=== PATIENT | female | born 1960 | race Caucasian/White ===

== ENCOUNTER 2020-03-10 12:05 | Outpatient (REF) | payer BC, SELFPAY ==
--- NOTE | 2020-03-10 12:10 | MM_ITS ---
EXAMINATION: MM SCREENING DIGITAL BREAST TOMOSYNTHESIS, BILATERAL CLINICAL INFORMATION: Screening. Asymptomatic. The lifetime risk of breast cancer based on the Tyrer-Cuzick Model is 9.3 COMPARISON: Mammography: May 05, 2019 and dating back to December 07, 2011 TECHNIQUE: Digital breast tomosynthesis is performed in both the craniocaudal and mediolateral oblique views along with computer-aided detection (CAD). Synthesized 2D images are generated from the tomosynthesis. FINDINGS: There are scattered areas of fibroglandular density (ACR BI-RADS breast composition Category b). There are no significant masses, abnormal calcifications, or other abnormalities. MM/MM tomosynthesis screening BI IMPRESSION: There are no significant changes from prior study. ASSESSMENT: BI-RADS 1: Negative RECOMMENDATION: Routine annual mammography screening. This patient's information was entered into a reminder system with a target due date for their next mammogram.
== END 2020-03-10 12:06 | disposition home or self-care (01) ==
LOC: HO.MAMMO 12:05
PROVIDERS: PCP Internal Medicine; Visit Provider Internal Medicine
DX: Z12.31 Encounter for screening mammogram for malignant neoplasm of breast (principal)
CPT/HCPCS: 77063; 77067

== ENCOUNTER 2020-11-16 07:53 | Outpatient (REF) | payer OTHER, SELFPAY ==
[2020-11-16 11:10] LABS: MANUAL DIFF FLAG NO
[2020-11-16 11:17] LABS: Basophils Absolute Auto 0.1 X10*3/uL (0.0-0.2); Basophils Percent Auto 0.8 % (0-2); Eosinophils Absolute Auto 0.2 X10*3/uL (0.0-0.4); Eosinophils Percent Auto 2.8 % (0-4); Hematocrit 43.5 % (37-47); Imm Gran Abs Auto 0.06 X10*3/uL (0.00-0.03); Imm Gran Pct Auto 0.8 % (0.0-0.4); Lymphocytes Absolute Auto 1.6 X10*3/uL (1.2-4.9); Lymphocytes Percent Auto 19.9 % (20-40); Mean Corpuscular HGB Conc 32.2 g/dl (31.0-35.0); Mean Corpuscular Hemoglobin 30.8 pg (27.0-33.0); Mean Corpuscular Volume 95.6 fL (80-98); Mean Platelet Volume 10.2 fL (9.4-12.3); Monocytes Absolute Auto 0.5 X10*3/uL (0.1-1.2); Monocytes Percent Auto 5.8 % (2-11); Neutrophils Absolute Auto 5.6 X10*3/uL (2.0-8.3); Neutrophils Percent Auto 69.9 % (45-73); Platelet Count 296 X10*3/uL (160-400); Red Blood Count 4.55 X10*6/uL (4.20-5.50); Red Cell Distribution Width 12.5 % (11.0-16.0)
[2020-11-16 11:42] LABS: Alanine Aminotransferase 13 U/L (0-31); Anion Gap 14 (12-20); Aspartate Amino Transferase 18 U/L (5-31); Blood Urea Nitrogen 15 mg/dL (9-16); Calcium 9.6 mg/dL (8.4-10.2); Carbon Dioxide 27 mmol/L (22-29); Chloride 104 mmol/L (96-108); Cholesterol 229 mg/dL; Estimated Glomerular Filt Rate > 60; Glucose Fasting 86 mg/dL (60-99); HDL Cholesterol 70 mg/dL; LDL Cholesterol Calculated 135 mg/dl; Potassium 4.2 mmol/L (3.3-5.1); Sodium 141 mmol/L (135-145); Triglycerides 121 mg/dL
[2020-11-16 11:52] LABS: TSH reflex Free T4 1.87 uIU/mL (0.32-4.0); Vitamin D 25-OH Total 40.8 ng/mL (>30)
[2020-11-18 21:52] LABS: Lyme Abs Screen <0.90 index
== END 2020-11-16 07:54 | disposition home or self-care (01) ==
LOC: HO.HMGCLDS 07:53
PROVIDERS: PCP Internal Medicine; Visit Provider Internal Medicine
DX: Z00.00 Encounter for general adult medical examination without abnormal findings (principal); E78.5 Hyperlipidemia, unspecified; R53.83 Other fatigue; I10 Essential (primary) hypertension
CPT/HCPCS: 36415; 80048; 80061; 82306; 84443; 84450; 84460; 85025; 86617; 86618

== ENCOUNTER → 2020-12-22 15:35 | Outpatient (BNVA) | payer OTHER, SELFPAY | PROVIDERS: PCP Internal Medicine; Referring Provider Internal Medicine; Visit Provider Nurse Practitioner Family ==

== ENCOUNTER 2021-02-12 06:54 | Day surgery (SDC) | payer OTHER, SELFPAY ==
--- NOTE | 2021-02-11 09:00 | P.CONAN_ITS ---
Documented by User: Nicole Barrientos NP 02/11/21 09:01 HPI - Anesthesia Eval Consult details Narrative: 60yo F for Colonoscopy PMFSH Active Problems Active Problems: All Active Problems (Updated 11/11/20 @ 10:12 by Trang Mahmood MD) Allergic rhinitis (Acute) Dyslipidemia (Acute) Past Medical History Medical History Allergic rhinitis Dyslipidemia History of depression Family History Family History Brother Substance abuse Mental health disorder Sister Substance abuse Mental health disorder Father Substance abuse Mental health disorder Cardiovascular disease Mother Myxoma Surgical History Surgical History History of left breast biopsy History of tonsillectomy Hx of colonoscopy Social History Social History Patient Tobacco Use Status: Never used Tobacco Use of substances other than those prescribed or required for medical reasons: No Are you DNR?: No Advance Directives: No Advance Directives Information Provided: Yes Meds Allergies Allergy/AdvReac Type Severity Reaction Status Date / Time Penicillins [PENICILLINS] Allergy Unknown UNKNOWN Verified 02/08/21 13:46 Home Medications Medication Instructions Recorded Confirmed Last Taken Type fexofenadine 180 mg tablet 180 mg PO DAILY PRN 11/11/20 02/08/21 Unknown History (Amy Allergy) flaxseed oil 1,000 mg capsule 1,000 mg PO DAILY 11/11/20 02/08/21 Unknown History fluticasone propionate 50 1 spray INTRANASAL DAILY PRN 11/11/20 02/08/21 Unknown History mcg/actuation nasal spray,suspension (Flonase Allergy Relief) multivitamin (One-A-Day Essential) 1 tab PO QAM 11/11/20 02/08/21 Unknown History Exam Exam Date and Time: February 11, 2021 0900 Pertinent Lab Results Pertinent Lab Results: Laboratory Tests 11/16/20 11/16/20 08:02 08:02 WBC 8.0 Hgb 14.0 Hct 43.5 Plt Count 296 Sodium 141 Potassium 4.2 Chloride 104 Carbon Dioxide 27 BUN 15 Creatinine 0.82 Assessment and Plan Assessment Anesthesia Assessment: Chart Reviewed Documented by User: Sasha Sams MD 02/12/21 08:05 [facility] [place] Past Medical History Medical History Allergic rhinitis Dyslipidemia History of depression Family History Family History Brother Substance abuse Mental health disorder Sister Substance abuse Mental health disorder Father Substance abuse Mental health disorder Cardiovascular disease Mother Myxoma Family history of problems with anesthesia: No Surgical History Surgical History History of left breast biopsy History of tonsillectomy Hx of colonoscopy History of Problems with Anesthesia: No Social History Social History Patient Tobacco Use Status: Never used Tobacco Use of substances other than those prescribed or required for medical reasons: No Are you DNR?: No Advance Directives: No Advance Directives Information Provided: Yes Meds Allergies Allergy/AdvReac Type Severity Reaction Status Date / Time Penicillins [PENICILLINS] Allergy Unknown UNKNOWN Verified 02/08/21 13:46 Home Medications Medication Instructions Recorded Confirmed Last Taken Type fexofenadine 180 mg tablet 180 mg PO DAILY PRN 11/11/20 02/08/21 Unknown History (Amy Allergy) flaxseed oil 1,000 mg capsule 1,000 mg PO DAILY 11/11/20 02/08/21 Unknown History fluticasone propionate 50 1 spray INTRANASAL DAILY PRN 11/11/20 02/08/21 Unknown History mcg/actuation nasal spray,suspension (Flonase Allergy Relief) multivitamin (One-A-Day Essential) 1 tab PO QAM 11/11/20 02/08/21 Unknown Hi story Exam Airway Mallampati Class: II TM Dist: >3cm Neck ROM: Full Assessment and Plan Assessment Anesthesia Assessment: Anesthesia Plan Discussed Final Anesthetic Review Family History of Problems with Anesthesia: No History of Problems with Anesthesia: No NPO: Yes ASA Class: II Final Preanesthetic Review: No Changes in Pt Med Stat, Meds/Allgs Chart Reviewed, Consent Obtained/Reviewed and Anes Risks/Benef Reviewed Patient Risk: Low Procedure Risk: Low Anesthetic Plan Anesthetic Plan: MAC: Disposition: Standard PACU
[2021-02-12 07:08] VITALS: BP 128/67; PULSE 94; RESP 16; TEMP 36.8; O2SAT 100; BMI 27.1
--- NOTE | 2021-02-12 07:10 | MHC.SHP ---
Pre-Procedural Eval Section A Date of Service: 02/12/21 The patient is an INPATIENT: No The History & Physical has been completed within 30 days and I have reviewed it.: No Section B Chief Complaint: Screening Details of Present Illness: Colon cancer screening Relevant Family History (Specify if Yes): No Relevant Social History: None Present Medications: see Short Stay Collaborative assessment Medical History: Significant History (Allergic rhinitis Dyslipidemia History of depression) History of Previous Operations: Relevant previous surgery/procedure and date(s) (History of left breast biopsy History of tonsillectomy) Allergies: Allergies Allergy/AdvReac Type Severity Reaction Status Date / Time Penicillins [PENICILLINS] Allergy Unknown UNKNOWN Verified 02/08/21 13:46 Review of Systems Sugical H&P ROS: Negative: Constitution, Cardiovascular, Respiratory and Gastrointestinal Exam Surgical H&P Exam: Normal: Heart, Normal: Lungs, Normal: Extremities and Normal: Abdomen Plan Diagnosis/Plan: Unchanged I have reviewed the history and physical and performed a pertinent physical examination on my patient. No changes have occurred unless specified.
--- NOTE | 2021-02-12 07:42 | PC.NURSE ---
IV inserted on second attempt. Patient stated I feel lightheaded. BP 88/49, HR 58. HOB laid flat, wash cloth applied to forehead, fluids opened wide. Resolved within few minutes. BP 118/62, HR 78.
[2021-02-12] MEDS: Lactated Ringers 1,000 ML 100 ML IVCONT (07:45)
--- NOTE | 2021-02-12 08:10 | P.OP_ITS ---
Operative Note Operative Note Date of Service: 02/12/21 Narrative: Pre-op diagnosis:?Colon cancer screening Post-op diagnosis:?other (Diverticulosis, hemorrhoids) Procedure:? COLONOSCOPY TILL CECUM Consent: Indications for the procedure and potential complications of bleeding, perforation, reaction to medications and missed diagnosis were discussed with the patient and informed consent was obtained. Instrument: Olympus PCF H 190 L variable stiffness pediatric colonoscope Monitoring: Vital signs and clinical assessment, intermittent blood pressure monitoring, continuous EKG monitoring, Pulse oximetry and Carbon Dioxide monitoring were done throughout the procedure. Colon withdrawl time was 14 minutes. Procedure: The patient was placed in the left lateral decubitis position and pre-procedure medications were administered. After a digital rectal examination of the ano-rectum, the video colonoscope was inserted into the rectum and advanced through the colon to the cecum. The colonoscope was slowly withdrawn in a retrograde panoramic fashion and the colon mucosa was carefully examined including a retroflexed view of the rectum. Findings and interventions are described below. Procedure Difficulty: Without difficulty Findings: Terminal Ileum: Not evaluated Cecum:? Normal Ascending Colon:? Normal Transverse Colon:? Normal Descending Colon:? Normal Sigmoid Colon:? Moderate diverticulosis Rectum:? Normal Ano-rectum:? Small internal hemorrhoids Colon preparation:? Good? Impression and Post Procedure Diagnosis: Colonoscopy Findings: No polyps were detected. Moderate diverticulosis seen in the sigmoid colon Small hemorrhoids on retroflexed exam. Plan: Patient has an appointment on 02/26/21 in the [facility] with Nataly Sheppard FNP-BC Vik Ok to cancel since no biopsies were obtained. Repeat Colonoscopy in 10 years. Above findings were reviewed with the patient and? and diverticulosis handout was given in the discharge area Surgeon:?Shilo Marie MD Anesthesia:?MAC (Lena Alves CRNA) Was an Compression Molding Machine Tender used for this Procedure?:?Yes Compression Molding Machine Tender:?Emiliano Loco Estimated blood loss (mL):?0 Pathology:?none sent Condition:?stable Disposition:?PACU
[2021-02-12 08:45] VITALS: BP 88/48; PULSE 78; RESP 15; TEMP 36.3; O2SAT 95
[2021-02-12 09:00] VITALS: BP 106/61; PULSE 72; RESP 16; TEMP 36.3; O2SAT 98
== END 2021-02-12 09:17 | disposition home or self-care (01) ==
PROVIDERS: PCP Internal Medicine; Visit Provider Internal Medicine Gastroenterology
PROC: 0DJD8ZZ Inspection of Lower Intestinal Tract, Via Natural or Artificial Opening Endoscopic (ICD-10-PCS; CPT 45378; principal; 2021-02-12 08:20)
DX: Z12.11 Encounter for screening for malignant neoplasm of colon (principal); K57.30 Diverticulosis of large intestine without perforation or abscess without bleeding; K64.8 Other hemorrhoids; Z88.0 Allergy status to penicillin
CPT/HCPCS: 45378

== ENCOUNTER 2021-03-12 12:02 | Outpatient (REF) | payer OTHER, SELFPAY ==
--- NOTE | ~2021-03-12 | MM_ITS ---
EXAMINATION: MM SCREENING DIGITAL BREAST TOMOSYNTHESIS, BILATERAL CLINICAL INFORMATION: Screening. Asymptomatic. The lifetime risk of breast cancer based on the Tyrer-Cuzick Model is 9%. COMPARISON: Mammography: 03/10/2020, 03/05/2019, 03/02/2018 TECHNIQUE: Digital breast tomosynthesis is performed in both the craniocaudal and mediolateral oblique views along with computer-aided detection (CAD). Synthesized 2D images are generated from the tomosynthesis. FINDINGS: There are scattered areas of fibroglandular density (ACR BI-RADS breast composition Category b). There are no significant masses, abnormal calcifications, or other abnormalities. The axilla and skin contours are unremarkable. MM/MM tomosynthesis screening BI IMPRESSION: No mammographic evidence of malignancy. ASSESSMENT: BI-RADS 1: Negative RECOMMENDATION: Routine annual mammography screening. This patient's information was entered into a reminder system with a target due date for their next mammogram.
--- NOTE | ~2021-03-12 | MM_ITS ---
EXAMINATION: BONE DENSITOMETRY CLINICAL INDICATION: Asymptomatic menopausal state. COMPARISON: This is the patient's baseline examination. TECHNIQUE: Using a [employer] DXA System (software version: 13.1) manufactured by [employer], dual-energy x-ray absorptiometry was performed of the lumbar spine and left hip. The images are of good technical quality. Summary results are attached. FINDINGS: AP SPINE L1-L4: BMD 1.189 g/cm2, Z-score 1.1, T-score 0.1, normal. LEFT FEMUR, NECK: BMD 0.920 g/cm2, Z-score 0.3, T-score -0.8, normal. LEFT FEMUR, TOTAL: BMD 0.971 g/cm2, Z-score 0.5, T-score -0.3, normal. IDENTIFIED RISK FACTORS: Menopause, 3 or more drinks per day. HISTORY OF FRACTURE: None listed. MEDICATIONS: Vitamin D. MM/XR DEXA axial skeleton IMPRESSION: 1. DIAGNOSIS: Normal bone density based on the lowest T-score value of -0.8 in the femoral neck applying World Health Organization criteria. 2. 10-YEAR FRACTURE RISK PREDICTION, FRAX: Major osteoporotic fracture (clinical spine, forearm, hip or shoulder) 8.5%. Hip fracture 0.5%. 3. Treatment Recommendations: NOF guidelines recommend consideration for treatment in postmenopausal women and men age 50 and older presenting with the following: -A hip or vertebral (clinical or morphometric) fracture. -T-score less than or equal to -2.5 at the femoral neck or spine after appropriate evaluation to exclude secondary causes. -Low bone mass at the hip or spine and a 10-year fracture probability by FRAX of greater than or equal to 3% for hip fracture or greater than or equal to 20% for major osteoporotic fracture based on the [place] adapted WHO algorithm. 4. Other Recommendations: All treatment decisions require clinical judgment and consideration of individual patient factors, including patient preferences, comorbidities, previous drug use, risk factors not captured in the FRAX model (e.g. frailty, falls, vitamin D deficiency, increased bone turnover, interval significant decline in bone density) and possible under or overestimation of fracture risk by FRAX. FUTURE SCAN RECOMMENDATION: People with diagnosed cases of osteoporosis or at high risk for fracture should have regular bone mineral density tests. For patients eligible for Medicare, routine testing is allowed once every 2 years. The testing frequency can be increased to one year for patients who have rapidly progressing disease, those who are receiving or discontinuing medical therapy to restore bone mass, or have additional risk factors.
== END 2021-03-12 12:03 | disposition home or self-care (01) ==
LOC: HO.MAMMO 12:02
PROVIDERS: Visit Provider Internal Medicine
DX: Z13.820 Encounter for screening for osteoporosis (principal); Z78.0 Asymptomatic menopausal state; Z12.31 Encounter for screening mammogram for malignant neoplasm of breast
CPT/HCPCS: 77063; 77067; 77080

== ENCOUNTER 2021-11-17 09:53 | Outpatient (REF) | payer BC, SELFPAY ==
[2021-11-17 12:11] LABS: Alanine Aminotransferase 15 U/L (0-31); Anion Gap 11 (12-20); Aspartate Amino Transferase 19 U/L (5-31); Blood Urea Nitrogen 14 mg/dL (9-16); Calcium 9.7 mg/dL (8.4-10.2); Carbon Dioxide 28 mmol/L (22-29); Chloride 106 mmol/L (96-108); Cholesterol 237 mg/dL; Estimated Glomerular Filt Rate > 60; Glucose Fasting 93 mg/dL (60-99); HDL Cholesterol 70 mg/dL; LDL Cholesterol Calculated 149 mg/dl; Potassium 4.3 mmol/L (3.3-5.1); Sodium 141 mmol/L (135-145); Triglycerides 92 mg/dL
[2021-11-17 12:20] LABS: Vitamin D 25-OH Total 40.6 ng/mL (>30)
== END 2021-11-17 09:54 | disposition home or self-care (01) ==
LOC: HO.HMGCLDS 09:53
PROVIDERS: PCP Internal Medicine; Visit Provider Internal Medicine
DX: Z00.01 Encounter for general adult medical examination with abnormal findings (principal); E78.5 Hyperlipidemia, unspecified
CPT/HCPCS: 36415; 80048; 80061; 82306; 84450; 84460

== ENCOUNTER 2022-03-15 13:31 | Outpatient (REF) | payer BC, SELFPAY ==
--- NOTE | ~2022-03-15 | MM_ITS ---
EXAMINATION: MM SCREENING DIGITAL BREAST TOMOSYNTHESIS, BILATERAL CLINICAL INFORMATION: Screening. Asymptomatic. COMPARISON: Mammography: March 12, 2021 and studies dating back to January 28, 2016 TECHNIQUE: Digital breast tomosynthesis is performed in both the craniocaudal and mediolateral oblique views along with computer-aided detection (CAD). Synthesized 2D images are generated from the tomosynthesis. FINDINGS: There are scattered areas of fibroglandular density (ACR BI-RADS breast composition Category b). There are no significant masses, abnormal calcifications, or other abnormalities. MM/MM tomosynthesis screening BI IMPRESSION: No significant changes from prior exam. ASSESSMENT: BI-RADS 1: Negative RECOMMENDATION: Routine annual mammography screening. This patient's information was entered into a reminder system with a target due date for their next mammogram.
== END 2022-03-15 13:32 | disposition home or self-care (01) ==
LOC: HO.MAMMO 13:31
PROVIDERS: PCP Internal Medicine; Visit Provider Internal Medicine
DX: Z12.31 Encounter for screening mammogram for malignant neoplasm of breast (principal)
CPT/HCPCS: 77063; 77067

== ENCOUNTER 2023-02-08 12:17 | Outpatient (AMB) | payer BC, SELFPAY ==
[2023-02-08 13:01] VITALS: BP 110/60; PULSE 73; O2SAT 99; BMI 24.1
--- NOTE | 2023-02-08 13:01 | A.OFFPC_ITS ---
Vital Signs 02/08/23 13:01 Height 5 ft 5 in Weight 145 lb BMI 24.1 BP 110/60 Blood Pressure Location Rt brachial Position Sitting Pulse 73 Pulse Source Pulse Oximeter Pulse Oximetry (%) 99 Oxygen Delivery Method Room Air Intake Visit Reasons: Annual PE Intake Note: Pt is here today for her PE/pap smear Allergies Penicillins [PENICILLINS] Allergy (Unknown, Verified 02/27/23 22:59) UNKNOWN Medication List - Last Reconciled 02/27/23 by Trang Mahmood MD cholecalciferol (vitamin D3) 25 mcg PO DAILY fexofenadine (Amy Allergy) 180 mg PO DAILY PRN flaxseed oil 1,000 mg PO DAILY fluticasone propionate 50 mcg/actuation (Flonase Allergy Relief) 1 spray intranasal DAILY PRN multivitamin (One-A-Day Essential tablet) 1 tab PO QAM Tobacco use date assessed: 02/08/23 Dental Screening Dental Screen Date: 02/08/23 Did you have a dental visit in the last 12 months?: Yes Did you have a dental problem in the last 6 months where you did not have access to dental care?: Yes Was dental information given to patient?: Patient has dentist HPI Annual PE HPI Details 63-year-old for physical exam. She has been feeling well, with no new complaints, has allergic rhinitis for which he takes Amy and uses Flonase nasal as needed. [facility] Medical History History of depression Allergic rhinitis Dyslipidemia Surgical History Hx of colonoscopy History of left breast biopsy History of tonsillectomy Family History Brother Substance abuse Mental health disorder Sister Substance abuse Mental health disorder Father Substance abuse Mental health disorder Cardiovascular disease Mother Myxoma Social History Housing: House Patient Tobacco Use Status: Never used Tobacco e-Cigarette/Vaping Use: Never Used service: No Current occupational status: retired Cognitive needs: No Hearing needs: No Vision needs: Yes Questionnaire PHQ-9 Over the last 2 weeks, how often have you been bothered by any of the following problems? 1. Little interest or pleasure in doing things: not at all 2. Feeling down, depressed, or hopeless: not at all 3. Trouble falling or staying asleep, or sleeping too much: not at all 4. Feeling tired or having little energy: several days 5. Poor appetite or overeating: not at all 6. Feeling bad about yourself - or that you are a failure or have let yourself or your family down: not at all 7. Trouble concentrating on things, such as reading the newspaper or watching television: not at all 8. Moving or speaking so slowly that other people could have noticed. Or the opposite - being so fidgety or restless that you have been moving around a lot more than usual: not at all 9. Thoughts that you would be better off or of hurting yourself in some way: not at all Total score: 1 Depression Screening Interpretation: Negative Depression Screening Done: Yes 62213 - PHQ-9 Billing: Yes Source: Developed by Drs. Mendel Gaytan, Irene Murillo, Domingo Casiano and colleagues, with an educational rin from [employer]. Thrive Questionnaire Date Thrive assessed: 02/08/23 I am a: Patient What is your living situation today?: I have a steady place to live Within the past 12 months, did the food you bought not last and you didn't have the money to get more?: Never true Within the past 12 months, did you worry whether your food would run out before you got money to buy more?: Never true Do you have trouble paying for medicines?: No Do you have trouble getting transportation to medical appointments?: No Do you have trouble paying your heating and electricity bill?: No Do you have trouble taking care of your child, family member or friend?: No Do you have trouble with day-to-day activities such as bathing, preparing meals, shopping, managing finances, etc.?: No Are you currently unemployed and looking for a job?: No Are you interested in more education?: No AUDIT C Alcohol Use Questionnaire (AUDIT-C) 1. How often do you have a drink containing alcohol?: Monthly or less 2. How many drinks containing alcohol do you have on a typical day when you are drinking?: 1 or 2 3. How often do you have six or more drinks on one occasion?: Never Total Score: 1 BAHMAN-7 AMB Questionnaire BAHMAN-7 Date BAHMAN - 7 assessed: 02/08/23 Feeling nervous, anxious, or on edge: 1 = Several days Not being able to stop or control worryin = Not at all Worrying too much about different things: 0 = Not at all Trouble relaxin = Not at all Being so restless that it is hard to sit still: 0 = Not at all Becoming easily annoyed or irritable: 1 = Several days Feeling afraid as if something awful might happen: 0 = Not at all Total BAHMAN-7 score (0-4 normal; 5-9 mild; 10-14 moderate; 15-21 severe): 2 Source: Developed by Drs. Mendel Gaytan, Irene Murillo, Domingo Casiano and colleagues, with an educational rin from [employer]. BAHMAN-7 Assessment Billing BAHMAN-7 Assessment Tool: BAHMAN-7 Assessment 51703 Review of Systems Const Denies body aches, Denies fatigue, Denies lethargy and Denies night sweats Eyes Denies change in vision, Denies eye discharge, Denies dry eyes and Denies irritation ENT Reports no additional complaints Card Reports no additional complaints Resp Reports no additional complaints GI Denies abdominal pain, Denies belching, Denies melena, Denies bloating, Denies change in bowel habits, Denies dyspepsia, Denies heartburn, Denies nausea and Denies vomiting Reports no additional complaints Musc Denies arthralgias, Denies joint swelling and Denies muscle weakness Skin/Breast Denies breast swelling, Denies breast pain, Denies breast mass, Denies lesions and Denies rash Neuro Reports no additional complaints Psych Reports no additional complaints Endo Denies fatigue Arcadio/Lymph Reports no additional complaints Aller/Immun Reports no additional complaints Physical exam (Primary Care) Vital Signs: Last Vital Signs Pulse 73 02/08/23 13:01 BP 110/60 02/08/23 13:01 Pulse Ox 99 02/08/23 13:01 Oxygen Delivery Method Room Air 02/08/23 13:01 BMI result Body Mass Index 24.1 Tobacco/Smoking Status: Tobacco use Status Tobacco use date assessed 02/08/23 02/08/23 13:02 Patient Tobacco Use Status Never used Tobacco 02/08/23 13:02 e-Cigarette/Vaping Use Never Used 02/08/23 13:02 PHQ-9: PHQ-9 Score PHQ-9: Total score 1 02/08/23 13:59 Depression Screening Interpretation: Negative Thrive Assessment: Date of Thrive Assessment Date Thrive assessed 02/08/23 02/08/23 13:07 Const General: cooperative, comfortable and no acute distress Orientation/consciousness: patient oriented x3 HENMT Ears: hearing grossly normal bilaterally, external ears normal, TM's normal bilaterally and EAC's normal General nose exam: Normal external nose present, Normal nasal mucous membranes and turbinates present and No nasal discharge present Mouth: Normal oral and palatal mucosa present, oropharynx normal and moist mucous membranes Eyes General: appearance normal, both eyes and all related structures Conjunctivae: conjunctivae normal Pupils: Equal, round and reactive pupils present EOM: EOMs intact bilaterally Neck Neck: Yes full ROM, Yes no lymphadenopathy and Yes supple Chest Breast/axilla inspection: normal inspection of the breasts Breast/axilla palpation: normal palpation of the breasts Resp Effort & Inspection: normal respiratory effort and able to speak in complete sentences Auscultation: clear to auscultation bilaterally Cardio Rate: regular rate Rhythm: regular rhythm Heart sounds: S1 normal heart sound present and S2 normal heart sound present GI Inspection: Yes normal to inspection Palpation (GI): Soft to palpation, nontender and no masses Auscultation: normal bowel sounds General: Yes bladder normal to palpation and Yes no CVA tenderness External Female Exam: normal external appearance and normal appearance of the urethra Speculum Exam - Vagina: normal appearance of the vagina, normal palpation and vagina atrophic Speculum Exam - Cervix: normal appearance of the cervix, normal palpation and Cervical os closed Bimanual exam- vagina & uterus: normal bimanual exam, normal palpation, bladder normal to palpation and normal palpation Bimanual Exam- Adnexa, other: normal adnexae, no masses, normal and No adnexal tenderness Back/Spine/Pelvis Back: no CVA tenderness Cervical Spine: cervical ROM normal Thoracic/Lumbar Spine: thoracic and lumbar spine normal to inspection Skin General skin exam: no rashes or lesions noted Neuro General: patient oriented x3, gait normal, tone normal, moves all extremities, Normal light touch and pain sensation and no focal motor deficits Cranial nerves: Yes Equal, round and reactive pupils present Cognition (Neuro): normal cognition Gait exam (Neuro): Normal gait present Motor exam (neuro): 5/5 motor strength present throughout Extrem General: Yes full ROM, Yes no joint enlargement, Yes no pedal edema, Yes no calf tenderness and Yes normal gait Psych Appearance: grossly normal Mental Status: mental status grossly normal Speech and movement: Normal speech and movement present Affect: normal affect Attitude: cooperative Thought process: Normal thought process present Assessment and Plan Assessment & Plan (1) Annual visit for general adult medical examination with abnormal findings: Code(s): Z00.01 - Encounter for general adult medical examination with abnormal findings Plan: Will check appropriate labs. Recommended dental visit every 6 months and regular eye exams, at least every 2 years. Take adequate calcium in diet and vitamin-D 3 at 2000 IU per cap once a day, in addition to weight-bearing exercises to help maintain good muscle tone and weight control. She is up-to-date with her screening mammogram, due again in March 2023. Last bone density scan done in 2020 showed normal bone density. She is up-to-date with her screening colonoscopy done [place] [address] Marie which showed presence only of diverticulosis and internal hemorrhoids. Cervical cancer screening was done today , she is up-to-date with her flu vaccine, reminded to get her COVID sandra kalpesh and to check with her pharmacy if she already received her 2nd dose of the Shingrix vaccine. Up-to-date with her Tdap (2) Dyslipidemia: Code(s): E78.5 - Hyperlipidemia, unspecified Plan: Fasting lipid panel ordered today (3) Cervical cancer screening: Code(s): Z12.4 - Encounter for screening for malignant neoplasm of cervix Plan: Pap smear done today Orders: Orders Vitamin D 25-OH Total 02/13/23 E78.5 - Hyperlipidemia, unspecified, Z78.0 - Asymptomatic menopausal state, Z00.01 - Encounter for general adult medical examination with abnormal findings Lipid Panel 02/13/23 E78.5 - Hyperlipidemia, unspecified, Z78.0 - Asymptomatic menopausal state, Z00.01 - Encounter for general adult medical examination with abnormal findings Alanine Aminotransferase 02/13/23 E78.5 - Hyperlipidemia, unspecified, Z78.0 - Asymptomatic menopausal state, Z00.01 - Encounter for general adult medical examination with abnormal findings Aspartate Amino Transferase 02/13/23 E78.5 - Hyperlipidemia, unspecified, Z78.0 - Asymptomatic menopausal state, Z00.01 - Encounter for general adult medical examination with abnormal findings Glucose Fasting 02/13/23 E78.5 - Hyperlipidemia, unspecified, Z78.0 - Asymptomatic menopausal state, Z00.01 - Encounter for general adult medical examination with abnormal findings Pap Smear 02/08/23 Z12.4 - Encounter for screening for malignant neoplasm of cervix, Z00.01 - Encounter for general adult medical examination with abnormal findings Coding Level of Care Code Est Pt Prev Care 40-64y(81340) Diagnoses Annual visit for general adult medical examination with abnormal findings Z00.01 Dyslipidemia E78.5 Cervical cancer screening Z12.4 Additional Codes BAHMAN-7 Assessment Billing - BAHMAN-7 Assessment Tool: BAHMAN-7 Assessment 34614 ([id number])
== END 2023-02-08 13:30 | disposition home or self-care (01) ==
PROVIDERS: Visit Provider Internal Medicine
DX: Z00.01 Encounter for general adult medical examination with abnormal findings (principal); E78.5 Hyperlipidemia, unspecified; Z12.4 Encounter for screening for malignant neoplasm of cervix
CPT/HCPCS: 99396

== ENCOUNTER 2023-02-08 13:26 | Outpatient (REF) | payer BC, SELFPAY | END 2023-02-08 13:27 | disposition home or self-care (01) | LOC: HO.LAB 13:26 | PROVIDERS: Visit Provider Internal Medicine | DX: Z12.4 Encounter for screening for malignant neoplasm of cervix (principal); Z11.51 Encounter for screening for human papillomavirus (HPV) | CPT/HCPCS: 87624; 88142 ==

== ENCOUNTER 2023-02-13 08:01 | Outpatient (REF) | payer BC, SELFPAY | END 2023-02-13 08:02 | disposition home or self-care (01) | LOC: HO.HMGCLDS 08:01 | PROVIDERS: PCP Internal Medicine; Visit Provider Internal Medicine | DX: Z00.01 Encounter for general adult medical examination with abnormal findings (principal); E78.5 Hyperlipidemia, unspecified; Z78.0 Asymptomatic menopausal state | CPT/HCPCS: 36415; 80061; 82306; 82947; 84450; 84460 ==

== ENCOUNTER 2023-03-20 13:06 | Outpatient (REF) | payer BC, SELFPAY | END 2023-03-20 13:07 | disposition home or self-care (01) | LOC: HO.MAMMO 13:06 | PROVIDERS: PCP Internal Medicine; Visit Provider Internal Medicine | DX: Z12.31 Encounter for screening mammogram for malignant neoplasm of breast (principal) | CPT/HCPCS: 77063; 77067 ==

== ENCOUNTER → 2023-03-20 13:15 | Outpatient (BNV) | payer BC, SELFPAY | PROVIDERS: PCP Internal Medicine; Visit Provider Radiology Diagnostic Radiology | DX: Z12.31 Encounter for screening mammogram for malignant neoplasm of breast (principal) | CPT/HCPCS: 77063; 77067 ==

== ENCOUNTER 2024-02-21 12:15 | Outpatient (AMB) | payer BC, SELFPAY ==
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
[2024-02-21 12:52] VITALS: BP 130/70; PULSE 67; O2SAT 97; BMI 23.5
== END 2024-02-21 13:46 | disposition home or self-care (01) ==
PROVIDERS: PCP Internal Medicine; Visit Provider Internal Medicine
DX: Z00.00 Encounter for general adult medical examination without abnormal findings (principal); E78.5 Hyperlipidemia, unspecified

== ENCOUNTER → 2024-02-21 12:15 | Outpatient (BNVA) | payer BC, SELFPAY | PROVIDERS: PCP Internal Medicine; Visit Provider Internal Medicine | DX: Z00.00 Encounter for general adult medical examination without abnormal findings (principal); E78.5 Hyperlipidemia, unspecified; Z23 Encounter for immunization | CPT/HCPCS: 90471; 90656; 96127 ==

== ENCOUNTER 2024-02-23 07:45 | Outpatient (REF) | payer BC, SELFPAY ==
[2024-02-23 12:13] LABS: Alanine Aminotransferase 14 U/L (0-31); Anion Gap 11 (12-20); Aspartate Amino Transferase 20 U/L (5-31); Blood Urea Nitrogen 15 mg/dL (9-16); Calcium 9.7 mg/dL (8.4-10.2); Carbon Dioxide 28 mmol/L (22-29); Chloride 107 mmol/L (96-108); Cholesterol 184 mg/dL (<200); Estimated Glomerular Filt Rate > 60; Glucose Fasting 92 mg/dL (60-99); HDL Cholesterol 70 mg/dL (>40); LDL Cholesterol Calculated 98 mg/dL (<100); Potassium 3.9 mmol/L (3.3-5.1); Sodium 142 mmol/L (135-145); Triglycerides 82 mg/dL (<150)
[2024-02-23 12:18] LABS: Vitamin D 25-OH Total 63.8 ng/mL (>30)
== END 2024-02-23 07:46 | disposition home or self-care (01) ==
LOC: HO.HMGCLDS 07:45
PROVIDERS: PCP Internal Medicine; Visit Provider Internal Medicine
DX: Z00.01 Encounter for general adult medical examination with abnormal findings (principal); Z13.1 Encounter for screening for diabetes mellitus; E78.5 Hyperlipidemia, unspecified
CPT/HCPCS: 36415; 80048; 80061; 82306; 84450; 84460

== ENCOUNTER 2024-03-22 13:00 | Outpatient (REF) | payer BC, SELFPAY ==
--- NOTE | ~2024-03-22 | MM_ITS ---
EXAMINATION: MM SCREENING DIGITAL BREAST TOMOSYNTHESIS, BILATERAL CLINICAL INFORMATION: Screening. Asymptomatic. COMPARISON: Mammography: Comparison is made with available priors TECHNIQUE: Digital breast mammography with tomosynthesis is performed in both the craniocaudal and mediolateral oblique views along with computer-aided detection (CAD). FINDINGS: There are scattered areas of fibroglandular density (ACR BI-RADS breast composition Category b). There are no significant masses, abnormal calcifications, or other abnormalities. MM/MM tomosynthesis screening BI IMPRESSION: No mammographic evidence of malignancy. ASSESSMENT: BI-RADS BI-RADS 1 - Negative RECOMMENDATION: Routine annual mammography screening. 1 year F/U This examination should not preclude the clinical evaluation of a suspicious palpable abnormality. This patient's information was entered into a reminder system with a target due date for their next mammogram. Electronically signed by: Jaycee Eli DO 04/02/2024 10:57 AM [place]
== END 2024-03-22 13:01 | disposition home or self-care (01) ==
LOC: HO.MAMMO 13:00
PROVIDERS: PCP Internal Medicine; Visit Provider Internal Medicine
DX: Z12.31 Encounter for screening mammogram for malignant neoplasm of breast (principal)
CPT/HCPCS: 77063; 77067

== ENCOUNTER → 2024-03-22 13:15 | Outpatient (BNV) | payer BC, SELFPAY | PROVIDERS: PCP Internal Medicine; Visit Provider Internal Medicine | DX: Z12.31 Encounter for screening mammogram for malignant neoplasm of breast (principal) | CPT/HCPCS: 77063; 77067 ==

== ENCOUNTER 2025-03-11 13:40 | Outpatient (AMB) | payer MEDICARE, SELFPAY ==
--- NOTE | 2025-03-11 14:05 | A.OFFPC_ITS ---
Vital Signs 03/11/25 14:11 Height 5 ft 5.5 in Weight 138 lb BMI 22.6 BP 102/54 L Blood Pressure Location Rt brachial Position Sitting Respiration 16 Pulse 74 Pulse Source Pulse Oximeter Temp 97.9 F Temp Source Oral Pulse Oximetry (%) 98 Oxygen Delivery Method Room Air Intake Visit Reasons: Annual PE Intake Note: Pt is here today for her PE: Last mammogram 03/22/24, bone density scan 03/12/21, papsmear 02/09/23, colonscopy 02/12/21 Allergies Penicillins (PENICILLINS) Allergy (Unknown, Verified 03/11/25 14:17) UNKNOWN Medication List - Last Reconciled 03/11/25 by Trang Mahmood MD cholecalciferol (vitamin D3) 25 mcg PO DAILY fexofenadine (Amy Allergy) 180 mg PO DAILY PRN flaxseed oil 1,000 mg PO DAILY fluticasone propionate 50 mcg/actuation (Flonase Allergy Relief) 1 spray intranasal DAILY PRN multivitamin (One-A-Day Essential tablet) 1 tab PO QAM Tobacco use date assessed: 03/11/25 Fall risk assessment: No Falls in past year Last assessed Fall Risk: 03/11/25 Dental Screening Dental Screen Date: 03/11/25 Did you have a dental visit in the last 12 months?: Yes Did you have a dental problem in the last 6 months where you did not have access to dental care?: No Was dental information given to patient?: Patient has dentist HPI Annual PE HPI Details 65-year-old lady with history of allergi c rhinitis, here today for her physical exam. She is currently up-to-date with her cervical cancer screening, last done in 2022 with negative findings. She had a bone density scan done in 2020 which showed normal bone density, due for her screening mammogram this year. Last colonoscopy was done by Dr. Marie in with benign findings, repeat due again in 2030. Has been feeling well, with no complaints at present time. Up-to-date with her vaccines but has not yet had her pneumonia vaccine and RSV vaccination. Has started doing exercise with weights, and has been compliant with following a healthy diet. [facility] Medical History History of depression Allergic rhinitis Dyslipidemia Surgical History Hx of colonoscopy History of left breast biopsy History of tonsillectomy Family History Brother Substance abuse Mental health disorder Sister Substance abuse Mental health disorder Father Substance abuse Mental health disorder Cardiovascular disease Mother Myxoma Social History Housing: House Alcohol intake: current Alcohol intake frequency: a few times a week Patient Tobacco Use Status: Never used Tobacco e-Cigarette/Vaping Use: Never Used Second Hand Smoke Exposure: No service: No Current occupational status: retired Cognitive needs: No Hearing needs: No Vision needs: Yes Female Reproductive History Menstrual Menopause type: natural Questionnaire PHQ-9 Over the last 2 weeks, how often have you been bothered by any of the following problems? 1. Little interest or pleasure in doing things: not at all 2. Feeling down, depressed, or hopeless: not at all 3. Trouble falling or staying asleep, or sleeping too much: not at all 4. Feeling tired or having little energy: several days 5. Poor appetite or overeating: not at all 6. Feeling bad about yourself - or that you are a failure or have let yourself or your family down: not at all 7. Trouble concentrating on things, such as reading the newspaper or watching television: not at all 8. Moving or speaking so slowly that other people could have noticed. Or the opposite - being so fidgety or restless that you have been moving around a lot more than usual: not at all 9. Thoughts that you would be better off or of hurting yourself in some way: not at all Total score: 1 Depression Screening Interpretation: Negative Depression Screening Done: Yes 78263 - PHQ-9 Billing: Yes Source: Developed by Drs. Mendel Gaytan, Irene Murillo, Domingo Casiano and colleagues, with an educational rin from [employer]. Thrive Questionnaire Date Thrive assessed: 03/04/25 I am a: Patient What is your living situation today?: I have a steady place to live Within the past 12 months, did the food you bought not last and you didn't have the money to get more?: Never true Within the past 12 months, did you worry whether your food would run out before you got money to buy more?: Never true Do you have trouble paying for medicines?: No Do you have trouble getting transportation to medical appointments?: No Do you have trouble paying your heating and electricity bill?: No Do you have trouble taking care of your child, family member or friend?: No Do you have trouble with day-to-day activities such as bathing, preparing meals, shopping, managing finances, etc.?: No Are you currently unemployed and looking for a job?: No Are you interested in more education?: No Please select the resources that you would like help with: None Currently or been in a relationship where the following occur: I choose not to answer THRIVE Score: 0 AUDIT C Alcohol Use Questionnaire (AUDIT-C) 1. How often do you have a drink containing alcohol?: 2-3 times a week 2. How many drinks containing alcohol do you have on a typical day when you are drinking?: 5 or 6 3. How often do you have six or more drinks on one occasion?: Never Total Score: 5 Score Reviewed/Action Taken: Yes BAHMAN-7 AMB Questionnaire BAHMAN-7 Date BAHMAN - 7 assessed: 03/11/25 Feeling nervous, anxious, or on edge: 0 = Not at all Not being able to stop or control worryin = Not at all Worrying too much about different things: 0 = Not at all Trouble relaxin = Not at all Being so restless that it is hard to sit still: 0 = Not at all Becoming easily annoyed or irritable: 1 = Several days Feeling afraid as if something awful might happen: 0 = Not at all Total BAHMAN-7 score (0-4 normal; 5-9 mild; 10-14 moderate; 15-21 severe): 1 Source: Developed by Drs. Mendel Gaytan, Irene Murillo, Domingo Casiano and colleagues, with an educational rin from [employer] BAHMAN-7 Assessment Billing BAHMAN-7 Assessment Tool: BAHMAN-7 Assessment 87472 Review of Systems Const Details: Dr Nice UTJody with eye exam Denies body aches, Denies daytime sleepiness, Denies difficulty sleeping, Denies fatigue, Denies lethargy, Denies night sweats, Reports snoring, Denies stops breathing during sleep and Reports weight loss Eyes Details: Dr Nice UTJody with eye exam Denies change in vision and Denies dry eyes ENT Reports no additional complaints Card Reports no additional complaints Resp Reports no additional complaints and Reports snoring GI Denies abdominal pain, Denies belching, Denies melena, Denies bloating, Denies change in bowel habits, Denies dyspepsia, Denies heartburn, Denies nausea and Denies vomiting Reports no additional complaints Musc Denies arthralgias, Denies joint swelling and Denies muscle weakness Skin/Breast Denies breast swelling, Denies breast pain, Denies breast mass, Denies lesions and Denies rash Neuro Reports no additional complaints Psych Reports no additional complaints Endo Denies fatigue Arcadio/Lymph Reports no additional complaints Aller/Immun Reports no additional complaints Physical exam (Primary Care) Vital Signs: Last Vital Signs Temp 97.9 F 03/11/25 14:11 Pulse 74 03/11/25 14:11 Resp 16 03/11/25 14:11 BP 102/54 L 03/11/25 14:11 Pulse Ox 98 03/11/25 14:11 Oxygen Delivery Method Room Air 03/11/25 14:11 BMI result Body Mass Index 22.6 Tobacco/Smoking Status: Tobacco use Status Tobacco use date assessed 03/11/25 03/11/25 14:09 Patient Tobacco Use Status Never used Tobacco 03/11/25 14:06 e-Cigarette/Vaping Use Never Used 03/11/25 14:06 PHQ-9: PHQ-9 Score PHQ-9: Total score 1 03/11/25 14:09 Depression Screening Interpretation: Negative Thrive Assessment: Date of Thrive Assessment Date Thrive assessed 03/04/25 03/11/25 14:06 Currently or been in a relationship where the following occur: I choose not to answer Advance Care Planning discussion: Completed/Scanned Date of discussion: 03/11/25 Who was present: Patient Forms completed: Health Care Proxy Time spent: 16-45 minutes Actual minutes spent: 1 Const General: cooperative, comfortable and no acute distress Orientation/consciousness: patient oriented x3 HENMT Ears: hearing grossly normal bilaterally, external ears normal, TM's normal bilaterally and EAC's normal General nose exam: Normal external nose present Mouth: Normal oral and palatal mucosa present and moist mucous membranes Eyes General: appearance normal, both eyes and all related structures Conjunctivae: conjunctivae normal Pupils: Equal, round and reactive pupils present EOM: EOMs intact bilaterally Neck Neck: Yes full ROM, Yes no lymphadenopathy and Yes supple Chest Breast/axilla inspection: normal inspection of the breasts Breast/axilla palpation: normal palpation of the breasts Resp Effort & Inspection: normal respiratory effort and able to speak in complete sentences Auscultation: clear to auscultation bilaterally Cardio Rate: regular rate Rhythm: regular rhythm Heart sounds: S1 normal heart sound present and S2 normal heart sound present GI Inspection: Yes normal to inspection Palpation (GI): Soft to palpation, nontender and no masses Auscultation: normal bowel sounds General: Yes no CVA tenderness Back/Spine/Pelvis Back: no CVA tenderness Cervical Spine: cervical ROM normal Thoracic/Lumbar Spine: thoracic and lumbar spine normal to inspection Skin General skin exam: no rashes or lesions noted Neuro General: patient oriented x3, gait normal, tone normal, moves all extremities, Normal light touch and pain sensation and no focal motor deficits Cranial nerves: Yes Equal, round and reactive pupils present Cognition (Neuro): normal cognition Gait exam (Neuro): Normal gait present Motor exam (neuro): 5/5 motor strength present throughout Extrem General: Yes full ROM, Yes no joint enlargement, Yes no pedal edema, Yes no calf tenderness and Yes normal gait Psych Appearance: grossly normal Mental Status: mental status grossly normal Speech and movement: Normal speech and movement present Affect: normal affect Coding Level of Care Code Est Pt Prev Care >65y(75107) Diagnoses Annual visit for general adult medical examination with abnormal findings Z00.01 Dyslipidemia E78.5 Skin cancer screening Z12.83 Advance directive discussed with patient Z71.89 Additional Codes BAHMAN-7 Assessment Billing - BAHMAN-7 Assessment Tool: BAHMAN-7 Assessment 13030 ([id number]) PHQ-9 - 22012 - PHQ-9 Billing: Yes ([id number]) Vital Signs *Quality* - Advance Care Planning discussion: Completed/Scanned ([id number]) Vital Signs *Quality* - Time spent: 16-45 minutes ([id number]) Assessment & Plan Assessment & Plan (1) Annual visit for general adult medical examination with abnormal findings: Code(s): Z00.01 - Encounter for general adult medical examination with abnormal findings Plan: Will check appropriate labs. Continue dental visit every 6 months and regular eye exams, at least every 2 years, up-to-date, was just seen Dr. Nice. Take adequate calcium in diet and vitamin-D 3 at 2000 IU per cap once a day, in addition to weight-bearing exercises to help maintain good muscle tone and weight control. Instructed to do self-breast exam, and continue to get yearly mammogram, due later this year. Will repeat another bone density next year, last 1 done in 2020 showed normal bone density.. Up-to-date with her vaccines. Reminded to get her pneumonia vaccine and RSV vaccination. Up-to-date with her colon cancer screening, due again for repeat colonoscopy in 2030. Referred to [facility] dermatology for skin cancer screening (2) Dyslipidemia: Code(s): E78.5 - Hyperlipidemia, unspecified Category: Medical Plan: Fasting lipids ordered. Reinforced importance of adhering to a healthy diet and, and getting at least 15 minutes of moderate intensity exercise daily. (3) Skin cancer screening: Code(s): Z12.83 - Encounter for screening for malignant neoplasm of skin Category: Medical Plan: Referral to [facility] Dermatology in [place] ordered (4) Advance directive discussed with patient: Code(s): Z71.89 - Other specified counseling Plan: Initiated the conversation about Advanced Directives. Advanced Directives help patients prepare for current and future decisions about their medical treatment and place of care. Discussed with patient that it is a process where a patients current condition and prognosis are reviewed, their wishes for information regarding their illness are elicited, and likely medical dilemmas are presented and options discussed. Healthcare proxy form completed today. The form can be amended as needed, reviewed yearly and make changes as needed Orders: Orders Vitamin D 25-OH Total Today E78.5 - Hyperlipidemia, unspecified, Z00.01 - Encounter for general adult medical examination with abnormal findings, Z13.1 - Encounter for screening for diabetes mellitus, Z13.220 - Encounter for screening for lipoid disorders, Z78.0 - Asymptomatic menopausal state Lipid Panel Today E78.5 - Hyperlipidemia, unspecified, Z00.01 - Encounter for general adult medical examination with abnormal findings, Z13.1 - Encounter for screening for diabetes mellitus, Z13.220 - Encounter for screening for lipoid disorders, Z78.0 - Asymptomatic menopausal state Hemoglobin and Hematocrit Today E78.5 - Hyperlipidemia, unspecified, Z00.01 - Encounter for general adult medical examination with abnormal findings, Z13.1 - Encounter for screening for diabetes mellitus, Z13.220 - Encounter for screening for lipoid disorders, Z78.0 - Asymptomatic menopausal state Basic Metabolic Panel Fasting Today E78.5 - Hyperlipidemia, unspecified, Z00.01 - Encounter for general adult medical examination with abnormal findings, Z13.1 - Encounter for screening for diabetes mellitus, Z13.220 - Encounter for scre ening for lipoid disorders, Z78.0 - Asymptomatic menopausal state Referrals Dermatology Referral Z12.83 - Encounter for screening for malignant neoplasm of skin
[2025-03-11 14:11] VITALS: BP 102/54; PULSE 74; RESP 16; TEMP 36.6; O2SAT 98; BMI 22.6
--- OUTSIDE RECORDS SUMMARY | 2025-03-11 16:50 | XMS_ITS | Patient Health Record ---
Author Organization [facility] Margarita Stewartley Address [address] [place] [address] Care Team Providers Care Sand Conditioner Name Role Phone Ela SOLOMON, Trang Collins Primary Care Provider Un available Juvenal Taylor Unavailable [phone] Allergies Allergen (clinical drug ingredient) Drug/Non Drug Allergy documented on EMR Reaction Allergy Type Onset Date Status Penicillin Unknown Drug Allergy Active Reason For Referral No Information Medications Medication SIG (Take, Route, Frequency, Duration) Notes Start Date End Date Status Multivitamin Active Diclofenac Active Flax Seed Oil 1000 MG as directed Orally Active Night Splint AFO - L1930 as directed 12/03/2018 Active Cephalexin 500 MG 1 tablet Orally Twic e a day; Duration: 10 day(s) Not-Taking Social History Tobacco Use: Social History Observation Description Date Details (start date - stop date) Never Smoker NA - NA Tobacco Use/Smoking Question Answer Notes Are you a: nonsmoker Additional Findings: Tobacco Non-User Current no n-smoker Alcohol Screen Question Answer Notes Did you have a drink contain ing alcohol in the past year? Yes How often did you have a dri nk containing alcohol in the past year? 2 to 4 times a month (2 points) How many drinks did you have on a typical day when you were drinking in the past year? 1 or 2 drinks (0 point) Points 2 Interpretation Negative Problems Problem Type SNOMED Code ICD Code Onset Dates Problem Status W/U Status Risk Notes Problem Plantar fascial fibromatosis (50605208) Plantar fascial fibromatosis (M72.2) Active confirmed Plan Of Treatment Pending Test Test Name Order Date 65338- Debride <25 sq cm 06/20/2017 34955 I&D ABSCESS- SIMPLE,SINGLE 018 Insurance Providers Payer Name Payer Address Payer Phone Subscriber Number Group Number Insured Name Patient Relationship to Insured Coverage Start Date Coverage End Date [employer] [address] [place] [address] [id number] 3 Papo Chambers Spouse - patient is the spouse of the insured Medical (General) History Medical History History ICD Code Arthritis Sinus conditions Chicken pox Surgical History Surgery Date(Month/Year) tonsillectomy breast biopsy Hospitalization History Reason Date(Month/Year) [facility] EVERY 3 WKS, [facility] 2014
== END 2025-03-11 14:48 | disposition home or self-care (01) ==
LOC: HO.HMCC 13:41
PROVIDERS: PCP Internal Medicine; Visit Provider Internal Medicine
DX: Z00.00 Encounter for general adult medical examination without abnormal findings (principal); E78.5 Hyperlipidemia, unspecified; Z12.83 Encounter for screening for malignant neoplasm of skin; Z71.89 Other specified counseling

== ENCOUNTER → 2025-03-11 13:40 | Outpatient (BNVA) | payer MEDICARE, SELFPAY | PROVIDERS: PCP Internal Medicine; Visit Provider Internal Medicine | DX: Z00.01 Encounter for general adult medical examination with abnormal findings (principal); E78.5 Hyperlipidemia, unspecified; Z78.0 Asymptomatic menopausal state; Z71.89 Other specified counseling | CPT/HCPCS: 96127; 99397 ==

== ENCOUNTER 2025-03-14 07:22 | Outpatient (REF) | payer MEDICARE, SELFPAY ==
--- OUTSIDE RECORDS SUMMARY | 2025-03-14 07:27 | XMS_ITS | Patient Health Record ---
Author Organization [facility] Margarita Stewartley Address [address] [place] [address] Care Team Providers Care Classification Clerk Name Role Phone Ela SOLOMON, Trang Collins Primary Care Provider Un available Juvenal Taylor Unavailable [phone] Allergies Allergen (clinical drug ingredient) Drug/Non Drug [...] Status Risk Notes Problem Plantar fascial fibromatosis (05548041) Plantar fascial fibromatosis (M72.2) Active confirmed Plan Of Treatment Pending Test Test Name Order Date 25443- Debride <25 sq cm 06/20/2017 04157 I&D ABSCESS- SIMPLE,SINGLE 018 Insurance Providers Payer Name Payer Address Payer Phone Subscriber Number Group Number Insured Name Patient Relationship to Insured Coverage Start Date Coverage End Date [employer] [address] [place] [address] [id number] 3 Papo Chambers Spouse - patient is the spouse of the insured Medical (General) History Medical History History ICD Code Arthritis Sinus conditions Chicken pox Surgical History Surgery Date(Month/Year) tonsillectomy breast biopsy Hospitalization History Reason Date(Month/Year) [facility] EVERY 3 WKS, [facility] [place] 2014
[2025-03-14 10:44] LABS: Hematocrit 40.4 % (37.0-47.0); Hemoglobin 13.2 g/dl (12.0-16.0)
[2025-03-14 10:50] LABS: Anion Gap 10 (12-20); Blood Urea Nitrogen 21 mg/dL (9-16); Calcium 9.2 mg/dL (8.4-10.2); Carbon Dioxide 28 mmol/L (22-29); Chloride 107 mmol/L (96-108); Cholesterol 208 mg/dL (<200); Estimated Glomerular Filt Rate > 60; HDL Cholesterol 72 mg/dL (>40); Potassium 4.0 mmol/L (3.3-5.1); Sodium 141 mmol/L (135-145); Triglycerides 58 mg/dL (<150)
== END 2025-03-14 07:23 | disposition home or self-care (01) ==
LOC: HO.HMGCLDS 07:22
PROVIDERS: PCP Internal Medicine; Visit Provider Internal Medicine
DX: Z00.01 Encounter for general adult medical examination with abnormal findings (principal); Z13.220 Encounter for screening for lipoid disorders; Z13.1 Encounter for screening for diabetes mellitus; Z78.0 Asymptomatic menopausal state; E78.5 Hyperlipidemia, unspecified
CPT/HCPCS: 36415; 80048; 80061; 82306; 85014; 85018

== ENCOUNTER 2025-03-28 12:39 | Outpatient (REF) | payer MEDICARE, SELFPAY ==
--- NOTE | ~2025-03-28 | MM_ITS ---
EXAMINATION: MM SCREENING DIGITAL BREAST TOMOSYNTHESIS, BILATERAL CLINICAL INFORMATION: Screening. Asymptomatic. COMPARISON: Mammography: Comparison is made with available priors TECHNIQUE: Digital breast mammography with tomosynthesis is performed in both the craniocaudal and mediolateral oblique views along with computer-aided detection (CAD). FINDINGS: There are scattered areas of fibroglandular density. There are no significant masses, abnormal calcifications, or other abnormalities. MM/MM tomosynthesis screening BI IMPRESSION: No mammographic evidence of malignancy. ASSESSMENT: BI-RADS Category 1: Negative RECOMMENDATION: Routine annual mammography screening. 1 year F/U This examination should not preclude the clinical evaluation of a suspicious palpable abnormality. This patient's information was entered into a reminder system with a target due date for their next mammogram. Electronically signed by: Jaycee Eli DO 04/01/2025 09:14 AM [place]
--- OUTSIDE RECORDS SUMMARY | 2025-03-28 12:56 | XMS_ITS | Patient Health Record ---
Author Organization [facility] Margarita Stewartley Address [address] [place] [address] Care Team Providers Care Video Game Repair Technician Name Role Phone Ela SOLOMON, Trang Collins Primary Care Provider Un available Juvenal Taylor Unavailable [phone] Allergies Allergen (clinical drug ingredient) Drug/Non Drug [...] Status Risk Notes Problem Plantar fascial fibromatosis (30653318) Plantar fascial fibromatosis (M72.2) Active confirmed Plan Of Treatment Pending Test Test Name Order Date 59755- Debride <25 sq cm 06/20/2017 36909 I&D ABSCESS- SIMPLE,SINGLE 018 Insurance Providers Payer Name Payer Address Payer Phone Subscriber Number Group Number Insured Name Patient Relationship to Insured Coverage Start Date Coverage End Date [employer] [address] [place] [address] [id number] 3 Papo Chambers Spouse - patient is the spouse of the insured Medical (General) History Medical History History ICD Code Arthritis Sinus conditions Chicken pox Surgical History Surgery Date(Month/Year) tonsillectomy breast biopsy Hospitalization History Reason Date(Month/Year) [facility] EVERY 3 WKS, [facility] [place] 2014
== END 2025-03-28 12:40 | disposition home or self-care (01) ==
LOC: HO.MAMMO 12:39
PROVIDERS: PCP Internal Medicine; Visit Provider Internal Medicine
DX: Z12.31 Encounter for screening mammogram for malignant neoplasm of breast (principal)
CPT/HCPCS: 77063; 77067

== ENCOUNTER → 2025-03-28 13:00 | Outpatient (BNV) | payer MEDICARE, SELFPAY | PROVIDERS: PCP Internal Medicine; Visit Provider Internal Medicine | DX: Z12.31 Encounter for screening mammogram for malignant neoplasm of breast (principal) | CPT/HCPCS: 77063; 77067 ==